=== PATIENT | female | born 1970 | race Caucasian/White ===

== ENCOUNTER → 2018-03-15 | Outpatient (CLI) | payer SELFPAY ==
--- NOTE | 2018-03-16 08:03 | MM ---
Reason for exam: additional evaluation requested from abnormal screening. Last mammogram was performed 1 month ago. History: Family history of breast cancer in sister at age 39. Benign excisional biopsy of the right breast, 2014. Took hormonal contraceptives for 2 years. Taking progesterone for 2 years. Physical Findings: Nurse did not find any significant physical abnormalities on exam. MG Work Up Mamm w CAD RT CC and MLO view(s) were taken of the right breast. Prior study comparison: February 16, 2018, bilateral foundation screening mammo. [place], [place] [facility] [place] tissue is heterogeneously dense. This may lower the sensitivity of mammography. Previous mammotome biopsy in the right breast. Grouped calcifications subareolar and anterior 12 o'clock. These begin to layer on lateral view and are smudgy on CC view. Findings suggest benign milk of calcium. These results were verbally communicated with the patient and result sheet given to the patient on 03/15/18. ASSESSMENT: Probably benign, BI-RAD 3 RECOMMENDATION: Follow-up diagnostic mammogram of the right breast in 6 months.
== END | disposition home or self-care (01) ==
LOC: RADMAMWWP 15:35
PROVIDERS: ATTEND Family Medicine
DX: R92.8 Other abnormal and inconclusive findings on diagnostic imaging of breast (principal)
CPT/HCPCS: 77065

== ENCOUNTER → 2018-10-14 | Outpatient (CLI) | payer SELFPAY ==
--- NOTE | 2018-10-14 09:03 | MM ---
Reason for exam: follow-up at short interval from prior study. Last mammogram was performed 7 months ago. History: Family history of breast cancer in sister at age 39. Benign excisional biopsy of the right breast, 2014. Took hormonal contraceptives for 2 years. Taking progesterone for 2 years beginning at age 44. Physical Findings: Nurse did not find any significant physical abnormalities on exam. MG Diagnostic Mammo RT w CAD CC, MLO, ML, spot compression ML, and spot compression CC view(s) were taken of the right breast. Prior study comparison: March 15, 2018, right breast MG work up mamm w CAD RT. February 16, 2018, bilateral MG foundation screening mammo. The breast tissue is heterogeneously dense. This may lower the sensitivity of mammography. There are stable benign appearing right central upper anterior depth calcifications in a group measuring 1.0cm. These are unchanged in size and number from the prior, rounded on the CC and some layer on ML view. Again probably benign. Right biopsy marker noted. These results were verbally communicated with the patient and result sheet given to the patient on 10/14/18. ASSESSMENT: Probably benign, BI-RAD 3 RECOMMENDATION: Follow-up diagnostic mammogram of both breasts in 6 months.
== END | disposition home or self-care (01) ==
LOC: RADMAMWWP 07:47
PROVIDERS: ATTEND Family Medicine
DX: R92.1 Mammographic calcification found on diagnostic imaging of breast (principal); R92.2 Inconclusive mammogram
CPT/HCPCS: 77065

== ENCOUNTER → 2020-04-09 | Outpatient (CLI) | payer BC ==
--- NOTE | 2020-04-10 12:39 | MM ---
Reason for exam: screening (asymptomatic). Last mammogram was performed 1 year and 2 months ago. History: Family history of breast cancer in sister at age 39. Benign excisional biopsy of the right breast, 2015. Took hormonal contraceptives for 2 years. Taking progesterone for 2 years beginning at age 44. Physical Findings: A clinical breast exam by your physician is recommended on an annual basis and results should be correlated with mammographic findings. MG Screening Mammo w CAD Bilateral CC and MLO view(s) were taken. Prior study comparison: February 10, 2019, bilateral foundation screening mammo. October 14, 2018, right breast MG diagnostic mammo RT w CAD. The breast tissue is heterogeneously dense. This may lower the sensitivity of mammography. There is chronic nodularity bilaterally. There is no dominant lesion. There is no discrete abnormality. No significant changes when compared with prior studies. ASSESSMENT: Benign, BI-RAD 2 RECOMMENDATION: Routine screening mammogram of both breasts in 1 year.
== END | disposition home or self-care (01) ==
LOC: RADMAMWWP 08:49
PROVIDERS: ATTEND Family Medicine
DX: Z12.31 Encounter for screening mammogram for malignant neoplasm of breast (principal)
CPT/HCPCS: 77067

== ENCOUNTER → 2021-04-11 | Outpatient (CLI) | payer OTHER ==
--- NOTE | 2021-04-15 12:12 | MM ---
Reason for exam: screening (asymptomatic). Last mammogram was performed 1 year ago. History: Family history of breast cancer in sister at age 39. Benign excisional biopsy of the right breast, 2015. Took hormonal contraceptives for 2 years. Took progesterone for 2 years beginning at age 44. Physical Findings: A clinical breast exam by your physician is recommended on an annual basis and results should be correlated with mammographic findings. MG 3D Screening Mammo W/Cad Bilateral CC and MLO view(s) were taken. Prior study comparison: April 09, 2020, bilateral MG screening mammo w CAD. February 10, 2019, bilateral MG foundation screening mammo. The breast tissue is heterogeneously dense. This may lower the sensitivity of mammography. Previous mammotome biopsy in the right breast. There is chronic nodularity in the right breast medially and in the left breast posteriorly. Stable grouped punctate anterior right breast calcifications. No significant changes when compared with prior studies. ASSESSMENT: Benign, BI-RAD 2 RECOMMENDATION: Routine screening mammogram of both breasts in 1 year. Patient should continue monthly self breast exams. A negative report should not preclude additional follow up of suspicious palpable abnormalities.
== END | disposition home or self-care (01) ==
LOC: RADMAMWWP 07:16
PROVIDERS: ATTEND Family Medicine
DX: Z12.39 Encounter for other screening for malignant neoplasm of breast (principal); R92.2 Inconclusive mammogram; Z80.3 Family history of malignant neoplasm of breast; Z98.890 Other specified postprocedural states
CPT/HCPCS: 77063; 77067

== ENCOUNTER → 2022-04-14 | Outpatient (CLI) | payer BC ==
--- NOTE | 2022-04-14 17:52 | MM ---
Reason for Exam: Screening (asymptomatic). Last screening mammogram was performed 12 month(s) ago. Patient History: Menarche at age 14. First Full-Term at age 23. Left ovary removed at age 36. Hysterectomy at age 36. Currently using Progesterone, beginning at age 44 for 2 years. Patient used Hormonal Contraceptives for 2 years. 2015, Benign Excisional Biopsy on the right side. Sister had breast cancer, age 39. Risk Values: Julita 5 year model risk: 2.2%. NCI Lifetime model risk: 19.1%. Prior Study Comparison: 02/10/2019 Bilateral Screening Mammogram, [facility]. 04/09/2020 Bilateral Screening Mammogram, [facility]. 04/11/2021 Bilateral Screening Mammogram, [facility]. Tissue Density: The breast tissue is heterogeneously dense. This may lower the sensitivity of mammography. Findings: Analyzed By CAD. Microclip central right breast from prior biopsy. There are punctate grouped calcifications anterior right breast that remain unchanged. Nodular asymmetric density inner right CC view middle to posterior depth is more defined. This may represent superimposition shadow but further evaluation is recommended. Possible underlying distortion lateral left CC view at middle depth. Spot compression view recommended. Nodular asymmetric density inner left cc view remains unchanged from 2018. Overall Assessment: Incomplete: need additional imaging evaluation, BI-RAD 0 Management: Special View Mammogram of both breasts. 1. Right including spot 3-D CC, 3-D CC rolled lateral, and 3-D LM views. 2. Left including spot 3-D CC, 3-D CC rolled medial, and 3-D ML views. 3. Targeted ultrasound of either breast for any persisting abnormality. [facility] will attempt to contact patient to return for supplemental views and ultrasound if indicated. Electronically signed and approved by: Robert Miranda M.D. Radiologist
== END | disposition home or self-care (01) ==
LOC: RADMAMWWP 07:14
PROVIDERS: ATTEND Family Medicine
DX: Z12.31 Encounter for screening mammogram for malignant neoplasm of breast (principal); Z80.3 Family history of malignant neoplasm of breast; Z98.890 Other specified postprocedural states
CPT/HCPCS: 77067

== ENCOUNTER → 2022-04-17 | Outpatient (CLI) | payer BC ==
--- NOTE | 2022-04-17 09:54 | MM ---
Reason for Exam: Additional evaluation requested from abnormal screening. Last screening mammogram was performed less than 1 month ago. Patient History: Menarche at age 14. First Full-Term at age 23. Left ovary removed at age 36. Hysterectomy at age 36. Currently using Progesterone, beginning at age 44 for 2 years. Patient used Hormonal Contraceptives for 2 years. 2015, Benign Excisional Biopsy on the right side. Sister had breast cancer, age 39. Risk Values: Julita 5 year model risk: 2.2%. NCI Lifetime model risk: 19.1%. Prior Study Comparison: 04/11/2021 Bilateral Screening Mammogram, [facility]. 04/14/2022 Bilateral MG screening mammo w CAD, [facility]. Tissue Density: The breast tissue is heterogeneously dense. This may lower the sensitivity of mammography. Findings: Analyzed By CAD. Under compression no persistent suspicious distortion within the left breast is evident. Under compression no persistent density is identified within the right breast. Rolled views and mediolateral views appear unremarkable. Multiple calcifications are subareolar right breast, present previously. Core markers in the right breast. Overall Assessment: Benign, BI-RAD 2 Management: Screening Mammogram of both breasts in 1 year. A clinical breast exam by your physician is recommended on an annual basis and results should be correlated with mammographic findings. This exam should not preclude additional follow-up of suspicious palpable abnormalities. Results were given to the patient verbally at the time of exam. Electronically signed and approved by: Manjeet Sherman D.O. Radiologis
== END | disposition home or self-care (01) ==
LOC: RADMAMWWP 09:05
PROVIDERS: ATTEND Family Medicine
DX: R92.8 Other abnormal and inconclusive findings on diagnostic imaging of breast (principal); Z80.3 Family history of malignant neoplasm of breast; Z98.890 Other specified postprocedural states
CPT/HCPCS: 77062; 77066

== ENCOUNTER → 2023-05-07 | Outpatient (CLI) | payer BC ==
--- NOTE | 2023-05-08 19:59 | MM ---
Reason for Exam: Screening (asymptomatic). Last mammogram was performed 1 year(s) and 1 month(s) ago. Patient History: Menarche at age 14. First Full-Term at age 23. Left ovary removed at age 36. Hysterectomy at age 36. Currently using Progesterone, beginning at age 44 for 2 years. Patient used Hormonal Contraceptives for 2 years. 2015, Benign Excisional Biopsy on the right side. Sister had breast cancer, age 39. Risk Values: Julita 5 year model risk: 2.3%. NCI Lifetime model risk: 18.8%. Prior Study Comparison: 04/11/2021 Bilateral Screening Mammogram, [facility]. 04/14/2022 Bilateral MG screening mammo w CAD, [facility]. 04/17/2022 Bilateral MG 3D work up w/cad [facility], [facility]. Tissue Density: The breast tissue is heterogeneously dense. This may lower the sensitivity of mammography. Findings: Analyzed By CAD. Microclip right breast from prior biopsy. Chronic nodularity on the right. Unchanged bilateral areas of asymmetric density. There is no suspicious group of microcalcifications or new suspicious mass in either breast. Overall Assessment: Benign, BI-RAD 2 Management: Screening Mammogram of both breasts in 1 year. . Patient should continue monthly self-breast exams. A clinical breast exam by your physician is recommended on an annual basis. This exam should not preclude additional follow-up of suspicious palpable abnormalities. Note on Julita scores and lifetime risk: 1. A Julita score greater than 3% is considered moderate risk. If this is the case, consider specialist referral to assess eligibility for a risk reducing agent. 2. If overall lifetime risk for the development of breast cancer is 20% or higher, the patient may qualify for future screening with alternating mammogram and breast MRI. Electronically signed and approved by: Robert Miranda M.D. Radiologist
== END | disposition home or self-care (01) ==
LOC: RADMAMWWP 06:58
PROVIDERS: ATTEND Family Medicine
DX: Z12.31 Encounter for screening mammogram for malignant neoplasm of breast (principal); Z80.3 Family history of malignant neoplasm of breast
CPT/HCPCS: 77067

== ENCOUNTER → 2024-05-23 | Outpatient (CLI) | payer OTHER ==
--- NOTE | 2024-05-23 08:09 | MM ---
Reason for Exam: Screening (asymptomatic). Last mammogram was performed 1 year(s) and 1 month(s) ago. Patient History: Menarche at age 14. First Full-Term at age 23. Left ovary removed at age 36. Hysterectomy at age 36. Currently using Progesterone, beginning at age 44 for 2 years. Patient used Hormonal Contraceptives for 2 years. 2015, Benign Excisional Biopsy on the right side. Sister had breast cancer, age 39. Risk Values: Julita 5 year model risk: 2.4%. NCI Lifetime model risk: 18.5%. Prior Study Comparison: 04/14/2022 Bilateral MG screening mammo w CAD, [facility]. 04/17/2022 Bilateral MG 3D work up w/cad [facility], [facility]. 05/07/2023 Bilateral MG screening mammo w CAD, [facility]. Tissue Density: The breasts are heterogeneously dense, which may obscure small masses. Findings: Analyzed By CAD. Biopsy clip in the right breast is redemonstrated. Stable benign-appearing grouped round calcifications in the anterior right breast. There is no suspicious new group of microcalcifications or new suspicious mass in either breast. Overall Assessment: Benign, BI-RAD 2 Management: Screening Mammogram of both breasts in 1 year. Some advise annual ultrasound surveillance in patients with background dense tissue. Patient should continue monthly self-breast exams. A clinical breast exam by your physician is recommended on an annual basis. This exam should not preclude additional follow-up of suspicious palpable abnormalities. Note on Julita scores and lifetime risk: 1. A Julita score greater than 3% is considered moderate risk. If this is the case, consider specialist referral to assess eligibility for a risk reducing agent. 2. If overall lifetime risk for the development of breast cancer is 20% or higher, the patient may qualify for future screening with alternating mammogram and breast MRI. [facility], , 05/23/2024 8:06 AM. Electronically signed and approved by: Julio Evans M.D.
== END | disposition home or self-care (01) ==
LOC: RADMAMWWP 06:56
PROVIDERS: ATTEND Family Medicine
DX: Z12.31 Encounter for screening mammogram for malignant neoplasm of breast (principal); R92.333 Mammographic heterogeneous density, bilateral breasts; Z90.721 Acquired absence of ovaries, unilateral; Z80.3 Family history of malignant neoplasm of breast
CPT/HCPCS: 77063; 77067